=== PATIENT | male | born 1985 | race Caucasian/White ===

== ENCOUNTER 2021-09-08 11:26 | Emergency (ER) | payer SELFPAY ==
[~2021-09-08] VITALS: Ht 170.1 cm; Wt 87.1 kg
[2021-09-08] MEDS ORDERED: AMOXICILLIN500 M2 PO (13:55)
== END 2021-09-08 13:58 | disposition home or self-care (01) ==
LOC: ED 11:26
DX: J02.0 Streptococcal pharyngitis (principal)

== ENCOUNTER 2021-09-09 08:18 | Emergency (ER) | payer SELFPAY ==
[~2021-09-09] VITALS: Wt 87.1 kg
[~2021-09-09 08:18] MED LIST: AMOXICILLIN500 M2 PO
[2021-09-09 09:04] LABS: BASO % 0.2 % (0.0-1.0); EOS # 0.1 10*3/uL (0.0-0.4); EOS % 0.4 % (1.0-4.0); HEMATOCRIT 41.3 % (42.0-52.0); LYMPH # 1.1 10*3/uL (1.3-4.4); LYMPH % 6.2 % (27.0-41.0); MEAN CELL VOLUME 91.4 fl (80.0-94.0); MEAN CORPUSCULAR HGB 30.3 pg (27.0-31.0); MEAN CORPUSCULAR HGB CONC 33.2 g/dl (33.0-37.0); MEAN PLATELET VOLUME 10.4 fl (9.6-12.3); MONO # 1.2 10*3/uL (0.1-1.0); MONO % 6.9 % (3.0-9.0); NEUT # 14.7 10*3/uL (2.3-7.9); NEUT % 85.5 % (47.0-73.0); PLATELET COUNT AUTOMATED 210 10*3/uL (130-400); RED BLOOD COUNT 4.52 10*6/uL (4.50-5.90); RED CELL DISTRI WIDTH 12.6 % (0-14.5); WHITE BLOOD COUNT 17.1 10*3/uL (4.8-10.8)
[2021-09-09 09:23] LABS: ALBUMIN 3.3 gm/dl (3.1-4.5); ALKALINE PHOSPHATASE 88 U/L (45-117); BUN 19 mg/dl (7-24); CHLORIDE 110 mmol/L (98-107); CREATININE 0.83 mg/dL (0.70-1.30); POTASSIUM 4.3 mmol/L (3.5-5.1); SGOT/AST 11 IU/L (3-35); SGPT/ALT 19 U/L (12-78); SODIUM 145 mmol/L (136-145); TOTAL PROTEIN 7.9 gm/dL (6.4-8.2)
== END 2021-09-09 13:39 | disposition left against medical advice (07) ==
LOC: ED 08:18
PROVIDERS: Emergency Medicine
DX: J36 Peritonsillar abscess (principal)